=== PATIENT | male | born 1950 | race Caucasian/White ===

== ENCOUNTER 2017-08-24 12:08 | Inpatient (IN) | payer MEDICARE ==
[~2017-08-24] VITALS: Ht 167.6 cm; Wt 74.8 kg
[2017-08-24 12:57] LABS: Alanine Aminotransferase 29 U/L (16-61); Albumin 3.8 g/dL (3.4-5.0); Anion Gap 7 (5-15); Aspartate Aminotransferase 36 U/L (15-37); BUN/Creatinine Ratio 16.5; Blood Urea Nitrogen 14 mg/dL (7-18); Calcium 9.1 mg/dL (8.5-10.1); Carbon Dioxide 29 mmol/L (21-32); Chloride 103 mmol/L (98-107); GFR African American 116 mL/min; GFR Non-African American 96 mL/min; Glucose 100 mg/dL (74-106); Sodium 139 mmol/L (136-145)
[2017-08-24 13:02] LABS: Alkaline Phosphatase 137 U/L (45-117); Bilirubin, Total 0.5 mg/dL (0.2-1.0); Total Protein 8.3 g/dL (6.4-8.2)
[2017-08-24] MEDS ORDERED: cefTRIAXone 1GM/10ml IVPUSH 10 ML IV ONE (13:30)
[2017-08-24] MEDS ORDERED: AZITHROMYCIN 500MG/ 250ML 250 ML IV ONE (13:30)
[2017-08-24 13:58] LABS: Basophils # (auto) 0.1 uL; Basophils % (auto) 0.9 % (0.0-2.0); Eosinophils # (auto) 0.5 uL; Eosinophils % (auto) 4.4 % (0.0-7.0); Hematocrit 46.1 % (41.0-53.0); Lymphocytes # (auto) 1.8 uL; Lymphocytes % (auto) 15.6 % (10.0-50.0); Mean Corpuscular Hemoglobin 29.6 pg (28.0-32.0); Mean Corpuscular Hgb Conc. 32.5 g/dL (32.0-36.0); Monocytes # (auto) 1.3 uL; Monocytes % (auto) 11.5 % (0.0-12.0); Neutrophils # (auto) 7.7 uL; Neutrophils % (auto) 67.6 % (37.0-80.0); Platelet Count (auto) 265 10^3/uL (140-450); Red Blood Cells 5.07 10^6/uL (4.5-5.90); Red Cell Distribution Width 14.6 % (11.8-14.3); White Blood Cell 11.3 10^3/uL (4.4-10.8)
[2017-08-24] MEDS ORDERED: MORPHINE SULFATE 4 MG/ML SYR/VIAL IV PRN ×2 (16:30)
[2017-08-24] MEDS ORDERED: PROMETHAZINE HCL 25 MG/ML 1ML IV PRN (16:30)
[2017-08-24] MEDS ORDERED: OSELTAMIVIR 75 MG CAP PO ONE (16:30)
[2017-08-24] MEDS ORDERED: TEMAZEPAM 15 MG CAP PO PRN (16:30)
[2017-08-24] MEDS ORDERED: HYDROcodone-ACET 5/325MG TAB PO PRN (16:30)
[2017-08-24] MEDS ORDERED: ACETAMINOPHEN 500 MG TAB PO PRN (16:30)
[2017-08-24] MEDS ORDERED: NITROGLYCERIN 0.4 MG SL TAB SL PRN (16:30)
[2017-08-24] MEDS ORDERED: LACTULOSE 20Gm/30ML SOLN PO PRN (16:30)
[2017-08-24] MEDS ORDERED: LORazepam 0.5 MG TAB PO PRN (16:30)
[2017-08-24] MEDS ORDERED: ALBUTEROL SULF 2.5 MG/0.5ML(0.5%) NEB SOLN NEB PRN (16:30)
[2017-08-24] MEDS: SODIUM CHLORIDE 0.9% 1,000 ML IV SCH (16:53)
[2017-08-24] MEDS: ENOXAPARIN SOD 40 MG/0.4 ML SYRINGE SC SCH (17:19)
[2017-08-24] MEDS ORDERED: methylPREDNISolone SOD SUCC 125 MG/2 ML VL IV ONE (19:15)
[2017-08-24] MEDS: ALBUTEROL SULF 2.5 MG/0.5ML(0.5%) NEB SOLN NEB SCH (20:00)
[2017-08-24 20:14] LABS: Urine Bacteria NONE SEEN /hpf (None Seen); Urine Blood Negative /uL (Negative); Urine Mucus FEW (None Seen); Urine Specific Gravity 1.029 (1.001-1.035); Urine WBC 1 /hpf (0 - 3)
[2017-08-24 21:54] VITALS: BP 158/83
[2017-08-24 22:00] VITALS: BP 138/79
[2017-08-24] MEDS ORDERED: OSELTAMIVIR 75 MG CAP PO SCH (22:00)
[2017-08-25] MEDS: methylPREDNISolone SOD SUCC 40 MG/ML VL IV SCH ×3 (00:30→14:12)
[2017-08-25 05:00] VITALS: BP 135/91
[2017-08-25] MEDS: SODIUM CHLORIDE 0.9% 1,000 ML IV SCH (05:34)
[2017-08-25] MEDS: ALBUTEROL SULF 2.5 MG/0.5ML(0.5%) NEB SOLN NEB SCH ×2 (06:56)
[2017-08-25 07:37] LABS: Basophils # (auto) 0 uL; Basophils % (auto) 0.4 % (0.0-2.0); Eosinophils # (auto) 0 uL; Hematocrit 45.1 % (41.0-53.0); Hemoglobin 14.8 g/dL (13.5-17.5); Lymphocytes # (auto) 0.8 uL; Lymphocytes % (auto) 9.7 % (10.0-50.0); Mean Corpuscular Hemoglobin 29.8 pg (28.0-32.0); Mean Corpuscular Hgb Conc. 32.9 g/dL (32.0-36.0); Mean Corpuscular Volume 90.6 fL (80.0-100.0); Monocytes # (auto) 0.1 uL; Monocytes % (auto) 1.6 % (0.0-12.0); Neutrophils # (auto) 7.3 uL; Neutrophils % (auto) 88.3 % (37.0-80.0); Nucleated Red Blood Cells % 0.1 %; Platelet Count (auto) 272 10^3/uL (140-450); Red Blood Cells 4.98 10^6/uL (4.5-5.90); Red Cell Distribution Width 14.1 % (11.8-14.3); White Blood Cell 8.3 10^3/uL (4.4-10.8)
[2017-08-25 07:53] LABS: Cholesterol 163 mg/dL (< 200); HDL Cholesterol 61 mg/dL (40-59); LDL Cholesterol 96 mg/dL (< 100); Triglycerides 48 mg/dL (< 150)
[2017-08-25] MEDS ORDERED: cefTRIAXone 1GM/10ml IVPUSH 10 ML IV SCH (09:00)
[2017-08-25] MEDS ORDERED: PANTOPRAZOLE 40 MG TAB PO SCH (10:00)
[2017-08-25] MEDS: ENOXAPARIN SOD 40 MG/0.4 ML SYRINGE SC SCH (10:00)
[2017-08-25] MEDS ORDERED: AZITHROMYCIN 500MG/ 250ML 250 ML IV SCH (10:00)
== END 2017-08-25 14:00 | disposition left against medical advice (07) | DRG 194 ==
LOC: ER 12:08 → TELE 12:09 → TELE-WESTW 18:35
PROVIDERS: ADMIT Internal Medicine; ATTEND Internal Medicine
DX: J18.9 Pneumonia, unspecified organism (principal); J44.0 Chronic obstructive pulmonary disease with (acute) lower respiratory infection; J44.1 Chronic obstructive pulmonary disease with (acute) exacerbation; Z53.21 Procedure and treatment not carried out due to patient leaving prior to being seen by health care provider; F17.210 Nicotine dependence, cigarettes, uncomplicated; L20.9 Atopic dermatitis, unspecified; M21.379 Foot drop, unspecified foot; M40.204 Unspecified kyphosis, thoracic region; Z85.46 Personal history of malignant neoplasm of prostate; Z90.79 Acquired absence of other genital organ(s); R91.1 Solitary pulmonary nodule
CPT/HCPCS: 36415; 71046; 71250; 80053; 80061; 81001; 83880; 84484; 85025; 87040; 87081; 87804; 93005; 94640; 96374; 96375

== ENCOUNTER 2024-08-12 11:43 | Inpatient (IN) | payer MEDICARE ==
[~2024-08-12] VITALS: Ht 172.7 cm; Wt 74.6 kg
[2024-08-12] MEDS ORDERED: IPRATROPIUM BROM 0.5 MG/2.5ML INH SOL NEB ONE (12:15)
[2024-08-12] MEDS ORDERED: ALBUTEROL SULF 2.5 MG/0.5ML(0.5%) NEB SOLN NEB ONE (12:15)
[2024-08-12] MEDS: methylPREDNISolone SOD SUCC 125 MG/2 ML VL IV ONE (12:31)
--- NOTE | 2024-08-12 12:54 | ED.PDOC ---
SOB-HPI HPI Comments 74-year-old male with a history of AFib, hypertension, dyslipidemia, prostate cancer in remission and COPD brought in by EMS from home complaining of shortness of breath for the last 2 weeks, and elevated blood pressure since last night. Patient reports his blood pressure was 185/102 at home. This is associated with a frontal headache. He denies any fever, cough or chest pain, but does have orthopnea and dyspnea on exertion. Chief Complaint: Shortness of Breath Time Seen by MD: 12:06 Primary Care Provider: lucia priest Mode of Arrival: Ambulatory Past Medical History PAST MEDICAL HISTORY: AFIB, COPD, High Lipids, HTN Past Medical History (Other): Prostate cancer in remission on p.o. chemotherapy, RA, Surgical History (Other): Prostate surgery, rotator cuff repair, back surgery Family History Family History: Reviewed,noncontributory to illness, Unknown Social History Smoker: Cigarettes, Less Than 1 Pack/Day Alcohol: Denies ETOH Use Drugs: Marijuana Lives In: Home All Other Systems: Reviewed and Negative (Comprehensive systems review obtained and negative except for what is stated in the HPI.) Physical Exam General Appearance: No Apparent Distress HEENT: Other (Pupils and face symmetric. Moist mucous membranes.) Neck: Full Range of Motion, Normal Inspection Respiratory: Decreased Breath Sounds, Lungs Clear, No Accessory Muscle Use, No Respiratory Distress Cardiovascular: No Edema, No JVD, Regular Rate/Rhythm Breast Exam: Deferred Gastrointestinal: Non Tender, Soft Genitalia: Deferred Pelvic: Deferred Rectal: Deferred Extremities: Normal inspection, Normal range of motion, Non-tender, No pedal edema Neurologic: Alert (Oriented x4), Normal Affect, Normal Mood, Other (Ambulatory. No gross focal deficit.) Cerebellar Function: NOT DONE Reflexes: NOT DONE Skin: Dry, Normal Color, Warm Lymphatic: NOT DONE EKG EKG : Comments Sinus rhythm, rate 65, normal TX and QRS intervals, QTC 484, normal axis, normal QRS, nonspecific T changes. Was a procedure done? Was a procedure done?: No Differential Dx Differential Diagnosis: Asthma, Bronchitis, CHF, COPD, Hypertension, Myocardial infarction, Panic Attack, Pneumonia, Respiratory Distress, URI X-Ray, Labs, Meds, VS Vital Signs Date Time Temp Pulse Resp B/P (MAP) Pulse Ox O2 Delivery O2 Flow Rate FiO2 08/12/24 14:31 71 16 154/101 (118) 95 08/12/24 14:30 154/101 08/12/24 13:02 18 97 Room Air* 0 21 08/12/24 12:37 97.8 62 16 137/80 (99) 93 97.8 08/12/24 12:31 Room Air* 0 21 08/12/24 11:58 97.9 70 20 164/96 (118) 96 08/12/24 11:56 65 08/12/24 11:48 20 96 Room Air* 0 21 Lab Test 08/12/24 13:25 Range/Units White Blood Count 10.3 4.4-10.8 10^3/uL Red Blood Count 5.17 4.5-5.90 10^6/uL Hemoglobin 15.9 13.5-17.5 g/dL Hematocrit 47.9 41.0-53.0 % Mean Corpuscular Volume 92.6 80.0-100.0 fL Mean Corpuscular Hemoglobin 30.7 28.0-32.0 pg Mean Corpuscular Hemoglobin Concent 33.1 32.0-36.0 g/dL Red Cell Distribution Width 16.0 H 11.8-14.3 % Platelet Count 219 140-450 10^3/uL Mean Platelet Volume 9.3 6.9-10.8 fL Neutrophils (%) (Auto) 72.5 37.0-80.0 % Lymphocytes (%) (Auto) 15.5 10.0-50.0 % Monocytes (%) (Auto) 8.9 0.0-12.0 % Eosinophils (%) (Auto) 2.4 0.0-7.0 % Basophils (%) (Auto) 0.7 0.0-2.0 % Neutrophils # (Auto) 7.5 1.6-8.6 10 ^3/uL Lymphocytes # (Auto) 1.6 0.4-5.4 10 ^3/uL Monocytes # (Auto) 0.9 0-1.3 10 ^3/uL Eosinophils # (Auto) 0.3 0-0.8 10 ^3/uL Basophils # (Auto) 0.1 0-0.2 10 ^3/uL Nucleated Red Blood Cells 0.0 % Sodium Level 137 136-145 mmol/L Potassium Level 4.2 3.5-5.1 mmol/L Chloride Level 102 98-107 mmol/L Carbon Dioxide Level 27 20-31 mmol/L Anion Gap 8 5-15 Blood Urea Nitrogen 15 9-23 mg/dL Creatinine 0.72 0.700-1.30 mg/dL Glomerular Filtration Rate Calc 96 >90 mL/min BUN/Creatinine Ratio 20.8 H 10.0-20.0 Serum Glucose 91 74-106 mg/dL Calcium Level 10.9 H 8.7-10.4 mg/dL Troponin I High Sensitivity 4 </=54 ng/L B-Type Natriuretic Peptide 74.40 0-100 pg/mL Current Medications Medications (Trade) Dose Ordered Sig/Shauna Route Start Time Stop Time Status Last Admin Methylprednisolone Sodium Succinate (Solu Medrol) 125 mg ONCE ONCE IV 08/12/24 12:15 08/12/24 12:16 DC 08/12/24 12:31 Acetaminophen/ Hydrocodone Bitart ([place] 5/325MG Tab) 1 tab ONCE ONCE PO 08/12/24 13:00 08/12/24 13:01 DC 08/12/24 14:31 Hydralazine HCl (Apresoline Injection) 10 mg ONCE ONCE IV 08/12/24 13:00 08/12/24 13:01 DC 08/12/24 14:30 [place] [id number] Ph: [phone] DIAGNOSTIC IMAGING Diagnostic Imaging Report : [id number] Signed PATIENT: JAME TREVINO CARLACCT: [id number] UNIT: [id number] : 1950 LOC: ER ROOM / BED: / AGE / SEX: 74 / M ADM STATUS: REG ER SERVICE 1207 ORDERING PHYSICIAN: TUNDE HEARN MD PROCEDURE(s): CXRP - CHEST PORTABLE REASON: sob ORDER NUMBER(s): [id number], ACCESSION NUMBER(s): [id number] CHEST RADIOGRAPH Indication: sob Technique: Single frontal view of the chest was obtained COMPARISON: None FINDINGS: Lines and Tubes: None Lungs: Increased interstitial prominence. Pleura: No effusion. No pneumothorax. Cardiomediastinal contours: Unremarkable Bones: Unremarkable IMPRESSION: Pulmonary vascular congestion versus viral pneumonitis ATED BY: ANDRAE RAZA MD DICTATED DATE/TIME: 08/12/24 1254 SIGNED BY: ANDRAE RAZA MD SIGNED DATE/TIME: 08/12/24 1254 CC: X-Ray, Labs, Meds, VS Comment 74-year-old male with a history of AFib, dyslipidemia, hypertension, prostate cancer in remission on p.o. chemotherapy, and COPD presenting with shortness of breath for 2 weeks and elevated blood pressure associated with a frontal headache since last night Vitals remarkable for BP 164/96 Exam unremarkable Rhythm strip independently interpreted by me: Sinus rhythm, rate 65, no ectopy. Chest x-ray IMPRESSION: Pulmonary vascular congestion versus viral pneumonitis CBC, basic metabolic panel, BNP and troponin unremarkable Patient treated with the following in the ED: Albuterol 5 mg/Atrovent 0.5 mg nebulized, Solu-Medrol 125 mg IV, [place] 5/325 mg p.o., Rocephin 1 g IV, Zithromax 500 mg IV On re-evaluation, patient is resting comfortably with stable vitals. Not in respiratory distress. Blood pressure stable. Plan is to admit the patient for respiratory support, IV antibiotics and blood pressure control. Time of 1ST Reevaluation: 14:00 Reevaluation 1ST: Improved Patient Education/Counseling: Diagnosis, Treatment Family Education/Counseling: No Family Present Departure 1 Departure Time of Disposition: 16:25 Impression: Primary Impression: Hypertensive urgency Additional Impressions: Pneumonitis COPD with acute exacerbation Disposition: ADMITTED INPATIENT [facility]mit to: [facility] Condition: Guarded e-Prescriptions No Active Prescriptions or Reported Meds Critical Care Note Critical Care Time?: No Stability Stability form required: No Heart Score Heart Score: Heart Score Response (Comments) Value History N/A 0 EKG N/A 0 Age N/A 0 Risk Factors N/A 0 Troponin N/A 0 Total 0 I personally scribed for TUNDE HEARN MD ([email or web address]) on 08/12/24 at 13:25. Electronically submitted by Dilcia García ([email or web address]). I personally scribed for TUNDE HEARN MD ([email or web address]) on 08/12/24 at 14:21. Electronically submitted by Dilcia García ([email or web address]). TUNDE HEARN MD Aug 12, 2024 12:54
--- NOTE | 2024-08-12 12:57 | DVH ---
CHEST RADIOGRAPH Indication: sob Technique: Single frontal view of the chest was obtained COMPARISON: None FINDINGS: Lines and Tubes: None Lungs: Increased interstitial prominence. Pleura: No effusion. No pneumothorax. Cardiomediastinal contours: Unremarkable Bones: Unremarkable IMPRESSION: Pulmonary vascular congestion versus viral pneumonitis
--- NOTE | 2024-08-12 13:56 | ECG ---
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
[2024-08-12 14:04] LABS: Basophils # (auto) 0.1 10 ^3/uL (0-0.2); Basophils % (auto) 0.7 % (0.0-2.0); Eosinophils # (auto) 0.3 10 ^3/uL (0-0.8); Eosinophils % (auto) 2.4 % (0.0-7.0); Hematocrit 47.9 % (41.0-53.0); Hemoglobin 15.9 g/dL (13.5-17.5); Lymphocytes # (auto) 1.6 10 ^3/uL (0.4-5.4); Lymphocytes % (auto) 15.5 % (10.0-50.0); Mean Corpuscular Hemoglobin 30.7 pg (28.0-32.0); Mean Corpuscular Hgb Conc. 33.1 g/dL (32.0-36.0); Mean Corpuscular Volume 92.6 fL (80.0-100.0); Monocytes # (auto) 0.9 10 ^3/uL (0-1.3); Monocytes % (auto) 8.9 % (0.0-12.0); Neutrophils # (auto) 7.5 10 ^3/uL (1.6-8.6); Neutrophils % (auto) 72.5 % (37.0-80.0); Platelet Count (auto) 219 10^3/uL (140-450); Red Blood Cells 5.17 10^6/uL (4.5-5.90); White Blood Cell 10.3 10^3/uL (4.4-10.8)
[2024-08-12 14:12] LABS: Chloride 102 mmol/L (98-107); Potassium 4.2 mmol/L (3.5-5.1); Sodium 137 mmol/L (136-145)
[2024-08-12 14:13] LABS: Anion Gap 8 (5-15); Carbon Dioxide 27 mmol/L (20-31)
[2024-08-12 14:18] LABS: Glucose 91 mg/dL (74-106)
[2024-08-12 14:19] LABS: BUN/Creatinine Ratio 20.8 (10.0-20.0); Blood Urea Nitrogen 15 mg/dL (9-23)
[2024-08-12 14:20] LABS: Calcium 10.9 mg/dL (8.7-10.4)
[2024-08-12] MEDS: hydrALAZINE HCL 20 MG/ML VL IV ONE (14:30)
[2024-08-12] MEDS: HYDROcodone-ACET 5/325MG TAB PO ONE (14:31)
[2024-08-12] MEDS ORDERED: cefTRIAXone 1GM/50ML D5W 50 ML IV ONE (16:30)
[2024-08-12] MEDS ORDERED: AZITHROMYCIN 500MG/ 250ML 250 ML IV ONE (16:30)
[2024-08-12] MEDS ORDERED: ONDANSETRON HCL 4 MG/2 ML VIAL IV PRN ×2 (19:15→19:30)
[2024-08-12] MEDS ORDERED: ACETAMINOPHEN 325 MG TAB PO PRN ×2 (19:15→19:30)
[2024-08-12] MEDS ORDERED: IPRATROPIUM BROM 0.5 MG/2.5ML INH SOL NEB PRN ×2 (19:15→19:30)
[2024-08-12] MEDS ORDERED: ALBUTEROL SULF 2.5 MG/0.5ML(0.5%) NEB SOLN NEB PRN ×2 (19:15→19:30)
[2024-08-12 19:16] VITALS: BP 141/74; PULSE 85; RESP 18; TEMP 97.8; O2SAT 95
--- NOTE | 2024-08-12 20:47 | DVHHP2 ---
History of Present Illness Reason for Visit: Shortness for breath History of Present Illness 74-year-old male presents for evaluation of shortness for breath. Patient with a history of COPD reports a two week history of worsening shortness for breath not being relieved with his inhaler or nebulizer at home. He also reports his blood pressure being elevated over the past two days. On arrival to the emergency department patient's blood pressure was in the 180s. Denies chest pain. Does report a frontal headache. No unilateral weakness, no visual disturbance.. Past Medical History COPD, hypertension, dermatitis Past Surgical History Prostatectomy, C-spine surgery Family History: None Family History Noncontributory Smoke: <1 pack per day ALCOHOL: none Drugs: Marijuana Lives: with Family Review of Systems Review of Systems Review of systems are currently negative otherwise addressed in HPI. Allergies: Coded Allergies: Sulfa Antibiotics (Verified Allergy, Unknown, 08/12/24) Medications Current Medications Medications Dose Ordered Sig/Shauna Route Start Time Stop Time Status Last Admin Dose Admin Ipratropium [place] 0.5 mg Q6HPRN PRN NEB 08/12/24 19:30 Ondansetron HCl 4 mg Q4HP PRN IV 08/12/24 19:30 Enoxaparin Sodium 40 mg DAILY SC 08/13/24 10:00 Ceftriaxone Sodium 50 ml @ 100 mls/hr DAILY@09 IV 08/13/24 09:00 Lisinopril 10 mg DAILY PO 08/13/24 10:00 Albuterol 2.5 mg Q6HPRN PRN NEB 08/12/24 19:30 Acetaminophen 650 mg Q6HP PRN PO 08/12/24 19:30 Exam Vital Signs Vital Signs Date Time Temp Pulse Resp B/P (MAP) Pulse Ox O2 Delivery O2 Flow Rate FiO2 08/12/24 19:16 97.8 85 18 141/74 95 0.0 21 97.8 08/12/24 13:02 Room Air* Exam Gen: 74-year-old male in mild distress Skin: Warm, dry, normal color and texture, no rash. HEENT: Normocephalic atraumatic, mucous membranes moist and pink. Neck: Cervical and supraclavicular nodes normal without enlargement, trachea is midline, thyroid gland is normal without masses. Pulmonary: Diminished breath sounds bilaterally Cardiac: Regular rate and rhythm. No murmur Abdomen: Soft, nontender, nondistended, bowel sounds present all 4 quadrants, no guarding, no rigidity, no organomegaly. Extremities: No cyanosis, clubbing, no edema Neuro: Cranial nerves II through XII grossly intact, normal affect and speech, no focal motor deficits. Labs/Xrays ORDERING PHYSICIAN: TUNDE HEARN MD PROCEDURE(s): CXRP - CHEST PORTABLE REASON: sob ORDER NUMBER(s): [id number], ACCESSION NUMBER(s): [id number] CHEST RADIOGRAPH Indication: sob Technique: Single frontal view of the chest was obtained COMPARISON: None FINDINGS: Lines and Tubes: None Lungs: Increased interstitial prominence. Pleura: No effusion. No pneumothorax. Cardiomediastinal contours: Unremarkable Bones: Unremarkable IMPRESSION: Pulmonary vascular congestion versus viral pneumonitis Labs Test 08/12/24 17:45 08/12/24 13:25 Range/Units Troponin I High Sensitivity 5 </=54 ng/L White Blood Count 10.3 4.4-10.8 10^3/uL Red Blood Count 5.17 4.5-5.90 10^6/uL Hemoglobin 15.9 13.5-17.5 g/dL Hematocrit 47.9 41.0-53.0 % Mean Corpuscular Volume 92.6 80.0-100.0 fL Mean Corpuscular Hemoglobin 30.7 28.0-32.0 pg Mean Corpuscular Hemoglobin Concent 33.1 32.0-36.0 g/dL Red Cell Distribution Width 16.0 H 11.8-14.3 % Platelet Count 219 140-450 10^3/uL Mean Platelet Volume 9.3 6.9-10.8 fL Neutrophils (%) (Auto) 72.5 37.0-80.0 % Lymphocytes (%) (Auto) 15.5 10.0-50.0 % Monocytes (%) (Auto) 8.9 0.0-12.0 % Eosinophils (%) (Auto) 2.4 0.0-7.0 % Basophils (%) (Auto) 0.7 0.0-2.0 % Neutrophils # (Auto) 7.5 1.6-8.6 10 ^3/uL Lymphocytes # (Auto) 1.6 0.4-5.4 10 ^3/uL Monocytes # (Auto) 0.9 0-1.3 10 ^3/uL Eosinophils # (Auto) 0.3 0-0.8 10 ^3/uL Basophils # (Auto) 0.1 0-0.2 10 ^3/uL Nucleated Red Blood Cells 0.0 % Sodium Level 137 136-145 mmol/L Potassium Level 4.2 3.5-5.1 mmol/L Chloride Level 102 98-107 mmol/L Carbon Dioxide Level 27 20-31 mmol/L Anion Gap 8 5-15 Blood Urea Nitrogen 15 9-23 mg/dL Creatinine 0.72 0.700-1.30 mg/dL Glomerular Filtration Rate Calc 96 >90 mL/min BUN/Creatinine Ratio 20.8 H 10.0-20.0 Serum Glucose 91 74-106 mg/dL Calcium Level 10.9 H 8.7-10.4 mg/dL B-Type Natriuretic Peptide 74.40 0-100 pg/mL Assessment/Plan Assessment/Plan Assessment Acute on chronic respiratory failure COPD exacerbation Accelerated hypertension Plan Admit the patient to Med surge to the hospitalist Charles Churchill nebarjun Resume home medications Continue treatment per orders. Plan discussed with: Patient My Orders Orders - LIZ YU Procedure Category Date Status Time Covid19 Antigen Ambika LAB 08/12/24 Logged Rapid Influenza A&B LAB 08/12/24 Logged 19:03 Admit ADMIT 08/12/24 Transmitted 19:03 Condition: Stable NALINI 08/12/24 In Process 19:03 Bedrest With Bathroom NALINI 08/12/24 In Process Privileg 19:03 Ipratropium Medneb PHA 08/12/24 In Process (Atrovent Medneb) 19:30 Ondansetron Hcl PHA 08/12/24 In Process (Zofran) 19:30 Enoxaparin Sodium PHA 08/13/24 In Process (Lovenox) 10:00 Ceftriaxone 1gm/50ml PHA 08/13/24 In Process D5w (Rocephin) 09:00 Lisinopril Tablet PHA 08/13/24 In Process (Zestril Tablet) 10:00 Albuterol Medneb PHA 08/12/24 In Process (Ventolin Medneb) 19:30 Acetaminophen Tablet PHA 08/12/24 In Process (Tylenol Tablet) 19:30 Date of Service: Aug 12, 2024 Billing Provider: LIZ YU Common Visit Codes: [id number] INP/OBS CARE (HIGH) LIZ YU Aug 12, 2024 20:47
[2024-08-13] MEDS ORDERED: cefTRIAXone 1GM/50ML D5W 50 ML IV SCH ×2 (09:00)
[2024-08-13] MEDS ORDERED: LISINOPRIL 5 MG TAB PO SCH ×2 (10:00)
[2024-08-13] MEDS ORDERED: ENOXAPARIN SOD 40 MG/0.4 ML SYRINGE SC SCH ×2 (10:00)
== END 2024-08-12 19:16 | disposition left against medical advice (07) | DRG 189 ==
LOC: ER 11:43 → OVERFLOW 19:03 → ER 19:16
PROVIDERS: ADMIT Nurse Practitioner; ATTEND Nurse Practitioner
DX: J96.20 Acute and chronic respiratory failure, unspecified whether with hypoxia or hypercapnia (principal); J44.1 Chronic obstructive pulmonary disease with (acute) exacerbation; I48.91 Unspecified atrial fibrillation; E78.5 Hyperlipidemia, unspecified; I16.0 Hypertensive urgency; Z53.29 Procedure and treatment not carried out because of patient's decision for other reasons; J98.4 Other disorders of lung; F17.210 Nicotine dependence, cigarettes, uncomplicated; I10 Essential (primary) hypertension; Z85.46 Personal history of malignant neoplasm of prostate; Z88.2 Allergy status to sulfonamides; Z79.899 Other long term (current) drug therapy
CPT/HCPCS: 36415; 71045; 80048; 83880; 84484; 85025; 93005; 94640; 96374; 96375; G0378